=== PATIENT | female | born 1940 | race Caucasian/White ===

== ENCOUNTER → 2016-10-05 | Outpatient (CLI) | payer MEDICARE | END | disposition home or self-care (01) | LOC: RAD.S 12:44 | DX: M79.89 Other specified soft tissue disorders (principal); M79.605 Pain in left leg ==

== ENCOUNTER → 2016-10-17 | Outpatient (CLI) | payer MEDICARE | END | disposition home or self-care (01) | LOC: RAD.S 10-11 13:50 | DX: Z12.31 Encounter for screening mammogram for malignant neoplasm of breast (principal); N64.4 Mastodynia; R92.1 Mammographic calcification found on diagnostic imaging of breast ==